=== PATIENT | male | born 1990 | race Caucasian/White ===

== ENCOUNTER 2021-02-20 00:34 | Emergency (ER) | payer MEDICAID, SELFPAY ==
[2021-02-20 00:57] VITALS: BP 120/79; PULSE 76; RESP 18; TEMP 36.9; O2SAT 98; BMI 28.0
[2021-02-20] MEDS: Diphth,Pertus(ACell),Tet Adult 0.5 ML SYRINGE IM (01:35)
[2021-02-20] MEDS: Rabies Immune Globulin/PF 900 UNIT/3 ML VIAL 1624 UNIT IM (01:45)
[2021-02-20] MEDS: Rabies Vaccine (PCEC)/PF 1 ML VIAL IM (01:46)
--- NOTE | 2021-02-20 02:31 | ED_ITS ---
HPI - Animal Bite General Chief Complaint: Animal Bite Stated Complaint: dog bite Time Seen by Provider: 02/20/21 01:14 Source: patient Mode of arrival: ambulatory History of Present Illness HPI narrative: 30-year-old male without significant past medical history presents with animal bite from unvaccinated personal pet. Patient has unknown tetanus status. Related Data Previous Rx's Medication Instructions Recorded amoxicillin 875 mg-potassium 1 tab PO Q12H 7 Days #14 tab 02/20/21 clavulanate 125 mg tablet (Augmentin) Allergies Allergy/AdvReac Type Severity Reaction Status Date / Time No Known Allergies Allergy Unverified 12/14/19 17:50 Review of Systems Review of Systems: Pertinent positives and negatives as stated in HPI 10 point review of systems otherwise negative. [facility] Past Medical History Source: nursing notes reviewed Social History Social History Advance Directives: No Advance Directives Information Provided: Yes Physical Exam Vital Signs: Vital Signs: Last Vital Signs Temp 98.5 F 02/20/21 00:57 Pulse 76 02/20/21 00:57 Resp 18 02/20/21 00:57 BP 120/79 02/20/21 00:57 Pulse Ox 98 02/20/21 00:57 Body Mass Index 28.0 VITAL SIGNS: Reviewed. GENERAL: Well developed, well nourished, in no acute distress. HEAD: Normocephalic/atraumatic EYES: PERRLA, EOM OROPHARYNX: no oral lesions noted, posterior pharynx clear LUNGS: Normal breath sounds. No adventitious sounds or accessory muscle use. SpO2<98> CARDIOVASCULAR: Regular rate and rhythm without noted murmurs ABDOMEN: Soft, non-tender, non-distended with bowel sounds. EXTREMITIES: No cyanosis, clubbing or edema; LEFT UPPER EXTREMITY WITH 4.5 CM LACERATION TO VENTRAL FOREARM THAT IS HEMOSTATIC WELL 3 CM LACERATION TO DORSAL LEFT FOREARM THAT IS HEMOSTATIC AND NUMEROUS PUNCTURE SITES. SKIN: Inspection of the skin reveals SIGNIFICANT BITE INJURY TO LEFT UPPER EXTREMITY NEUROLOGIC: Alert and oriented x 4. Strength and sensation to light touch were grossly intact x 4. Course Course Course Narrative: THIS IS A 30-YEAR-OLD MALE WITH SIGNIFICANT BY INJURY TO HIS LEFT FOREARM AND AFTER ADEQUATE LOCAL ANESTHETIC WAS APPLIED ALL PUNCTURE SITES AND LACERATION/BITE SITES WERE COPIOUSLY IRRIGATED. THE LARGER LACERATIONS WERE THEN CLOSED WITHOUT COMPLICATIONS AND THE PUNCTURE SITE WERE LEFT OPEN. THE PATIENT RECEIVED TETANUS, ANTIBIOTICS, WELL INITIATION OF THE RABIES SERIES. Procedures Laceration Laceration 1: Site: upper extremity Side (If applicable): left Size (cm): 4.5 Description: flap, irregular and clean Depth: involves muscle layer Local Anesthetic: lidocaine 2% and with epi Amount of anesthesia used (mL): 7 Pre-repair: wound explored, irrigated extensively and deep structures intact Skin layer closed with: nylon Size (cm): 3-0 Number of sutures: 5 Technique: simple, interrupted and horizontal mattress Subcutaneous layer closed with: vicryl Size: 4-0 Number of sutures: 2 Technique: simple, interrupted Muscle layer closed with: vicryl Size: 4-0 Number of sutures: 1 Technique: simple, interrupted Laceration 2: Site: upper extremity Side (If applicable): left Size (cm): 3 Description: linear Depth: involves muscle layer Local Anesthetic: lidocaine 2% and with epi Amount of anesthesia used (mL): 3 Pre-repair: wound explored, irrigated extensively and deep structures intact Skin layer closed with: nylon Size (cm): 3-0 Number of sutures: 4 Technique: simple, interrupted and horizontal mattress Subcutaneous layer closed with: vicryl Size: 4-0 Number of sutures: 2 Technique: simple, interrupted Discharge Plan Discharge Clinical Impression: Dog bite, Laceration of multiple sites of arm Patient Disposition: Home, Self-Care Instructions: Rabies Vaccine (By injection), Rabies Immune Globulin (By injection), Animal Bite (ED), Care For Your Stitches (ED), Laceration (ED) Additional Instructions: Then a dose of RABIES vaccine given again on days 3, 7, and 14. You may cleanse the injury sites with soap and water daily and then reapply antibiotic ointment and cover. You will need to have your sutures removed between days 7 and 10, but will need to return for subsequent rabies injections as indicated above. Complete the entire course of your antibiotics. You may use [id number] Tylenol/ibuprofen as needed for pain control as well as elevation as much as possible of your left arm. Return to the ER for worsening symptoms such as increasing redness or purulence drainage or developing a fever chills. Prescriptions: New amoxicillin-pot clavulanate [Augmentin] 729-125 mg tablet 1 tab PO Q12H 7 Days Qty: 14 RF: 0 Stand Alone Forms: Work/School Release
[2021-02-20] MEDS: Amoxicillin/Potassium Clav 875 MG TABLET PO (02:52)
== END 2021-02-20 03:10 | disposition home or self-care (01) ==
PROVIDERS: Emergency Provider Student in an Organized Health Care Education/Training Program
DX: S51.812A Laceration without foreign body of left forearm, initial encounter (principal); S41.112A Laceration without foreign body of left upper arm, initial encounter; S41.132A Puncture wound without foreign body of left upper arm, initial encounter; W54.0XXA Bitten by dog, initial encounter; Y93.9 Activity, unspecified; Y92.9 Unspecified place or not applicable; Y99.9 Unspecified external cause status; Z20.3 Contact with and (suspected) exposure to rabies
CPT/HCPCS: 12032; 90375; 90471; 90472; 90675; 90715; 96372; 99283; 99284

== ENCOUNTER 2021-02-24 15:09 | Outpatient (REF) | payer MEDICAID, SELFPAY | END 2021-02-24 15:10 | disposition home or self-care (01) | LOC: HO.MDS 15:09 | DX: Z29.14 Encounter for prophylactic rabies immune globulin (principal); S50.872D Other superficial bite of left forearm, subsequent encounter; W54.0XXD Bitten by dog, subsequent encounter; Z20.3 Contact with and (suspected) exposure to rabies | CPT/HCPCS: 90471; 90675 ==

== ENCOUNTER 2021-02-28 14:53 | Outpatient (REF) | payer MEDICAID, SELFPAY | END 2021-02-28 14:54 | disposition home or self-care (01) | LOC: HO.MDS 14:53 | DX: Z29.14 Encounter for prophylactic rabies immune globulin (principal); S51.852D Open bite of left forearm, subsequent encounter; S41.152D Open bite of left upper arm, subsequent encounter; W54.0XXD Bitten by dog, subsequent encounter; Z20.3 Contact with and (suspected) exposure to rabies | CPT/HCPCS: 90471; 90675 ==

== ENCOUNTER 2023-01-14 09:58 | Emergency (ER) | payer MEDICAID, SELFPAY ==
--- NOTE | ~2023-01-14 | XR_ITS ---
EXAMINATION: XR CHEST 2 VIEW CLINICAL INFORMATION: Left shoulder pain with inspiration COMPARISON: None TECHNIQUE: PA and lateral views of the chest obtained. FINDINGS: The lungs are clear. There are no pleural effusions. The cardiomediastinal silhouette is normal. No pneumothorax, rib fracture or bone lesion is detected. XR/XR chest 2V IMPRESSION: No acute cardiopulmonary disease.
[2023-01-14 10:37] VITALS: BP 148/85; PULSE 74; RESP 18; TEMP 37.1; O2SAT 99; BMI 27.4
--- NOTE | 2023-01-14 12:12 | ED.GENADULT ---
HPI - General Adult General Chief complaint: Back Pain/Injury Stated complaint: diff breathing pain in shoulder blades Time Seen by Provider: 01/14/23 11:59 Source: patient Mode of arrival: ambulatory Limitations: no limitations History of Present Illness HPI narrative: Patient is a 32-year-old male presenting to the emergency department with complaint of pain under his left shoulder blade which began yesterday. States the pain is exacerbated with deep inspiration and exhalation and worsened with certain movements but is unable to specify which movements. Denies fall or other trauma. Reports difficulty sleeping last night due to pain, states he was tossing and turning. Denies any chest pain or shortness of breath. Denies cough or recent fevers. Denies any recent calf pain or swelling. Denies any hemoptysis. Denies any recent surgery, trauma, or immobilization. Denies any personal or family history of blood clots. Denies any hormone use. He did not take any OTC medications at home for his symptoms. MD complaint: shoulder pain with inspiration Onset (ago): hour(s) Location: left and upper extremity Radiation: non-radiation Severity: severe Quality: stabbing Pain Consistency: colicky Relieving factors: rest Exacerbating factors: movement Associated symptoms: denies other symptoms Treatments prior to arrival: none Related Data Previous Rx's Medication Instructions Recorded amoxicillin 875 mg-potassium 1 tab PO Q12H 7 days #14 tabs 02/20/21 clavulanate 125 mg tablet (Augmentin) cyclobenzaprine 5 mg tablet 5 mg PO TID PRN muscle spasm #10 01/14/23 tabs Allergies Allergy/AdvReac Type Severity Reaction Status Date / Time No Known Allergies Allergy Unverified 12/14/19 17:50 Review of Systems Review of Systems: As per HPI. Yes all other systems are reviewed and are negative Constitutional: Constitutional: Reports as per HPI [facility] Social History Social History Smoked in Last 30 Days: Yes Use of substances other than those prescribed or required for medical reasons: Yes Substance Use Type: Marijuana Advance Directives: No Advance Directives Information Provided: Yes Physical Exam ED Vital Signs: Vital Signs - 24 hr 01/14/23 10:37 Temperature 98.7 F Pulse Rate 74 Respiratory Rate 18 Blood Pressure 148/85 H Pulse Oximetry 99 Oxygen Delivery Method Room Air BMI result Body Mass Index 27.4 Vital signs have been reviewed and appear to be correct. Blood pressure elevated. Heart rate normal. Respiratory rate normal. Temperature normal. Oxygen saturation normal. Const General: cooperative, healthy appearing and no acute distress Orientation/consciousness: oriented to person, oriented to place, oriented to time and patient oriented x3 Limitations: no limitations HENMT Head: Yes normocephalic and Yes atraumatic Ears: external ears normal General nose exam: Normal external nose present Face and sinus: Yes face symmetric Mouth: oropharynx normal and moist mucous membranes Throat: Yes uvula midline Eyes Pupils: Equal, round and reactive pupils present Neck Neck: Yes normal visual inspection and Yes supple Chest Chest palpation & inspection: normal inspection of the chest and normal palpation of entire chest wall Resp Effort & Inspection: normal respiratory effort and able to speak in complete sentences Auscultation: clear to auscultation bilaterally Cardio Rate: regular rate Rhythm: regular rhythm Heart sounds: S1 normal heart sound present and S2 normal heart sound present GI Palpation (GI): Soft to palpation and nontender Auscultation: normoactive bowel sounds General: Yes no CVA tenderness Back/Spine/Pelvis Back: no CVA tenderness Skin General skin exam: elasticity normal and turgor normal Neuro General: oriented to person, oriented to place, oriented to time, patient oriented x3, moves all extremities, no focal motor deficits and CN's II-XI intact bilaterally Cranial nerves: Yes Equal, round and reactive pupils present Cognition (Neuro): normal cognition Extrem General: Yes full ROM, Yes no pedal edema and Yes no calf tenderness Psych Mental Status: mental status grossly normal Affect: normal affect Thought process: Normal thought process present Medications Administered Discontinued Medications Generic Name Dose Route Start Last Admin Trade Name Freq PRN Reason Stop Dose Admin Cyclobenzaprine HCl 10 mg 01/14/23 12:18 01/14/23 12:34 Cyclobenzaprine Hcl 10 Mg Tablet PO 01/14/23 12:19 10 mg ONCE ONE Administration Ketorolac Tromethamine 30 mg 01/14/23 12:18 01/14/23 12:34 Ketorolac Tromethamine 30 Mg/Ml Vial IM 01/14/23 12:19 30 mg ONCE ONE Administration Medical Decision Making Medical Decision Making MDM Narrative: Patient is a 32-year-old male presenting to the emergency department with complaint of pain under his left shoulder blade which began yesterday. On exam patient is awake, A+Ox3, BP mildly elevated, VS otherwise WNL, afebrile, normal neurological exam without focal deficits, physical exam findings as above. Given reported symptoms and physical exam findings, initial differential includes muscle strain, pneumonia, pneumothorax. Low suspicion for PE based on PERC rule. X-ray notable for no acute abnormalities. My interpretation is in agreement with the radiologist's interpretation. Patient reports significant improvement in discomfort after medications given in the ED. Feel patient is stable for discharge home with muscle relaxers. Advised him to apply heat intermittently throughout the day and perform gentle ROM exercises. Return precautions discussed at bedside. Patient verbalized understanding of and agreement with plan. PERC Rule for Pulmonary Embolism from [email or web address] on 01/14/2023 All calculations should be rechecked by clinician prior to use RESULT SUMMARY: 0 criteria No need for further workup, as <2% chance of PE. If no criteria are positive and clinician?s pre-test probability is <15%, PERC Rule criteria are satisfied. INPUTS: Age >=0 ?> 0 = No HR >=00 ?> 0 = No O? sat on room air ?> 0 = No Unilateral leg swelling ?> 0 = No Hemoptysis ?> 0 = No Recent surgery or trauma ?> 0 = No Prior PE or DVT ?> 0 = No Hormone use ?> 0 = No Differential Diagnosis Differential Diagnoses: The differential diagnosis associated with the presentation includes As per [facility] Independent Interpretation I performed an independent interpretation of an: Plain X-Ray Interpretation: No acute abnormalities on chest x-ray. Radiology Impression Discussion of test interpretation with radiology: I have reviewed the radiologist's reading. Radiologist Impression: XR/XR chest 2V IMPRESSION: No acute cardiopulmonary disease. External Record Review External record reviewed: Inpatient record, Office record and Outpatient record Prescription Management I considered prescription management with: Pain Medication and Other Discharge Plan Discharge Clinical Impression: Muscle strain of left scapular region Qualifiers: Encounter type: initial encounter Qualified Code(s): S46.912A - Strain of unspecified muscle, fascia and tendon at shoulder and upper arm level, left arm, initial encounter Patient Disposition: Home, Self-Care Instructions: Muscle Strain (DC) Additional Instructions: You have been evaluated in the emergency department today for left shoulder pain. Your evaluation did not find evidence of medical conditions requiring emergent intervention at this time. You are being prescribed a muscle relaxer which you can take every 8 hours as needed. We recommend you take 600mg ibuprofen every 6 hours or 650mg Tylenol every 6 hours as needed for pain. If needed you can alternate these medications as they take 1 medication every 3 hours. For instance at noon take ibuprofen, then at 3:00 p.m. take Tylenol, then at 6:00 p.m. take ibuprofen. Please schedule an appointment for follow-up with your primary care provider this week. Return to the emergency department if you experience worsening pain, numbness, tingling, change of color in your arm, chest pain, shortness of breath, fainting, calf pain or swelling, or any other concerning symptoms. Prescriptions: New cyclobenzaprine 5 mg tablet 5 mg PO TID PRN (Reason: muscle spasm) Qty: 10 0RF No Action amoxicillin-pot clavulanate [Augmentin] 875-125 mg tablet 1 tab PO Q12H 7 Days Qty: 14 0RF Stand Alone Forms: Work/School Release
[2023-01-14] MEDS: Ketorolac Tromethamine 30 MG/ML VIAL IM (12:34)
[2023-01-14] MEDS: Cyclobenzaprine HCl 10 MG TABLET PO (12:34)
== END 2023-01-14 13:44 | disposition home or self-care (01) ==
PROVIDERS: Emergency Provider Emergency Medicine Emergency Medical Services
DX: S46.912A Strain of unspecified muscle, fascia and tendon at shoulder and upper arm level, left arm, initial encounter (principal); X58.XXXA Exposure to other specified factors, initial encounter; F12.90 Cannabis use, unspecified, uncomplicated; Y93.9 Activity, unspecified; Y92.9 Unspecified place or not applicable; Y99.9 Unspecified external cause status
CPT/HCPCS: 71046; 96372; 99284; J1885